=== PATIENT | female | born 1950 | race Caucasian/White ===

== ENCOUNTER 2021-07-09 09:54 | Outpatient (CLI) | payer OTHER, SELFPAY | END 2021-07-09 09:55 | disposition home or self-care (01) | LOC: ANHBWCAUD 09:55 | PROVIDERS: PCP Family Medicine; Visit Provider Otolaryngology | DX: H60.92 Unspecified otitis externa, left ear (principal); H90.3 Sensorineural hearing loss, bilateral | CPT/HCPCS: 92557; 92567 ==

== ENCOUNTER 2023-12-09 14:21 | Outpatient (CLI) | payer OTHER, SELFPAY | END 2023-12-09 14:22 | disposition home or self-care (01) | LOC: ANHBWCAUD 14:22 | PROVIDERS: PCP Family Medicine; Visit Provider Otolaryngology | DX: H90.3 Sensorineural hearing loss, bilateral (principal) | CPT/HCPCS: 99199 ==